=== PATIENT | female | born 1950 | race Caucasian/White ===

== ENCOUNTER 2023-11-16 12:31 | Outpatient (CLI) | payer MEDICARE, OTHER, MEDICAID ==
--- NOTE | 2023-11-16 16:24 | XRAY Report ---
PROCEDURE: Thoracic Spine 2V INDICATIONS: RIGHT RIB PAIN/FALL TECHNIQUE: 2 views of the thoracic spine were acquired. COMPARISON: None. FINDINGS: Bones: No fractures or dislocations. No suspicious bony lesions. 12 pairs of ribs are noted, and a ppear intact where visualized. Mild levoconvex curvature of the thoracolumbar spine. Mild multilevel degenerative changes with disc height loss and osteophytosis. Soft tissues: No paravertebral stripe thickening. Surgical clips in the left breast. IMPRESSION: 1.No acute bony abnormality. If clinical symptoms persist, consider cross-sectional imaging for furt her evaluation. 2.Mild multilevel degenerative changes of the spine. Reviewed by: Ulisses Trimble MD on 11/16/2023 4:23 PM PDT Approved by: Ulisses Trimble MD on 11/16/2023 4:23 PM PDT Station ID: [id number]
--- NOTE | 2023-11-16 16:26 | XRAY Report ---
PROCEDURE: Ribs w/PA Chest 3+V RT INDICATIONS: RIGHT RIB PAIN/FALL TECHNIQUE: 3 views of the ribs were acquired, along with a single view chest. COMPARISON: None. FINDINGS: Surgical changes and devices: Surgical clips in the left breast. Bones and chest wall: No fractures or dislocations. No suspicious bony lesions. Overlying soft tis sues appear unremarkable. Lungs and pleura: Trace right-sided pleural effusion. No left-sided pleural effusion. No pneumothora x. Hyperexpansion of the lungs with flattening of the diaphragm which may be secondary to chronic obs tructive lung disease. Lungs appear clear. Mediastinum: Mediastinal contours appear normal. Heart size is normal. Aortic arch is calcified, indicating atherosclerosis. IMPRESSION: No displaced rib fracture or pneumothorax. Trace right-sided pleural effusion. Consider radiographic follow-up to document resolution. Hyperexpansion of the lungs with flattening of the diaphragm which may be secondary to COPD. Reviewed by: Ulisses Trimble MD on 11/16/2023 4:24 PM PDT Approved by: Ulisses Trimble MD on 11/16/2023 4:24 PM PDT Station ID: [id number]
== END 2023-11-16 23:59 | disposition home or self-care (01) ==
LOC: DI.S 12:31
PROVIDERS: ATTEND Registered Nurse
DX: M47.814 Spondylosis without myelopathy or radiculopathy, thoracic region (principal); J90 Pleural effusion, not elsewhere classified

== ENCOUNTER 2023-11-29 14:11 | Outpatient (CLI) | payer MEDICARE, OTHER, MEDICAID ==
--- NOTE | 2023-11-29 18:11 | XRAY Report ---
PROCEDURE: Chest 2V INDICATIONS: PLEURAL EFFUSION TECHNIQUE: 2 views of the chest were acquired. COMPARISON: . FINDINGS: Surgical changes and devices: Left lumpectomy clips. Lungs and pleura: No pleural effusions or pneumothorax. Resolution of minimal right pleural effusion . Lungs are clear. Mediastinum: Mediastinal contours appear normal. Heart size is normal. Bones and chest wall: No suspicious bony lesions. Overlying soft tissues appear unremarkable. IMPRESSION: Resolution of minimal right pleural effusion. No acute pulmonary process. Reviewed by: Pito Lester MD on 11/29/2023 6:10 PM PDT Approved by: Pito Lester MD on 11/29/2023 6:10 PM PDT Station ID: [id number]
== END 2023-11-29 14:12 | disposition home or self-care (01) ==
LOC: DI.S 14:11
PROVIDERS: ATTEND Emergency Medicine
DX: Z09 Encounter for follow-up examination after completed treatment for conditions other than malignant neoplasm (principal); Z87.09 Personal history of other diseases of the respiratory system